=== PATIENT | male | born 1970 | race Two or more races ===

== ENCOUNTER 2020-05-22 11:33 | Emergency (ER) | payer OTHER ==
[~2020-05-22] VITALS: Ht 182.9 cm; Wt 83.9 kg
[2020-05-22] MEDS ORDERED: CHILDREN'S ASPI81 MG (11:43)
[2020-05-22] MEDS ORDERED: LIPITOR40 M1 (11:43)
[2020-05-22] MEDS ORDERED: KETO10TA2 PO (15:38)
[2020-05-22] MEDS ORDERED: LEVSIN/SL0.125 MG SL (15:38)
== END 2020-05-22 15:49 | disposition home or self-care (01) ==
LOC: ER 11:33
DX: R10.11 Right upper quadrant pain (principal); Z03.818 Encounter for observation for suspected exposure to other biological agents ruled out

== ENCOUNTER 2020-11-14 15:27 | Emergency (ER) | payer OTHER ==
[~2020-11-14] VITALS: Ht 180.3 cm; Wt 88.5 kg
[~2020-11-14 15:27] MED LIST: CHILDREN'S ASPI81 MG; KETO10TA2 PO; LEVSIN/SL0.125 MG SL; LIPITOR40 M1
[2020-11-14] MEDS ORDERED: PANTOPRAZOLE SO20 MG PO (15:57)
== END 2020-11-14 21:49 | disposition home or self-care (01) ==
LOC: ER 15:27
DX: K92.1 Melena (principal); K80.20 Calculus of gallbladder without cholecystitis without obstruction